=== PATIENT | female | born 1980 | race Caucasian/White ===

== ENCOUNTER 2019-09-02 11:58 | Day surgery (SDC) | payer MEDICAID ==
[~2019-09-02] VITALS: Ht 167.6 cm; Wt 136.4 kg
[~2019-09-02 11:58] MED LIST: GABA-531 PO; LOSA100T58 PO; METF-445 PO; OMEP20 PO; SERT100T12 PO; SODIUM CHLORIDE 0.9% 1,000 ML ONE
[2019-09-02] MEDS ORDERED: PROPOFOL 1% 20 ML VIAL IVP ONE (11:59)
[2019-09-02] MEDS ORDERED: LIDOCAINE/PF 2% 5 ML VIAL IM ONE (11:59)
[2019-09-02] MEDS ORDERED: SODIUM CHLORIDE 0.9% 1,000 ML IV ONE (12:00)
[2019-09-02 12:55] LABS: GLUCOMETER DEV NAME(LOC) SDS.; GLUCOSE,POINT OF CARE 246 MG/DL (70-110)
== END 2019-09-02 16:38 | disposition home or self-care (01) ==
LOC: SURGERY 11:58
PROVIDERS: ATTEND Student in an Organized Health Care Education/Training Program
DX: K62.5 Hemorrhage of anus and rectum (principal); R11.2 Nausea with vomiting, unspecified; K64.8 Other hemorrhoids; K20.8 Other esophagitis; K29.50 Unspecified chronic gastritis without bleeding; K62.1 Rectal polyp; E11.9 Type 2 diabetes mellitus without complications; E66.9 Obesity, unspecified; Z68.42 Body mass index [BMI] 45.0-49.9, adult; R97.8 Other abnormal tumor markers; F17.210 Nicotine dependence, cigarettes, uncomplicated; I10 Essential (primary) hypertension; Z98.890 Other specified postprocedural states; Z88.0 Allergy status to penicillin; Z91.018 Allergy to other foods; Z91.09 Other allergy status, other than to drugs and biological substances
CPT/HCPCS: 36415; 45380; 43239; 82962; 84702; 88305; 88312; 88313; C1769; J2704; J3490; J7030